=== PATIENT | female | born 1970 | race Caucasian/White ===

== ENCOUNTER 2017-05-03 20:10 | Emergency (ER) | payer BC, OTHER ==
[2017-05-03 20:19] VITALS: BP 150/80
[2017-05-03] MEDS ORDERED: methylPREDNISolone Sodium Succinate 125 MG/2 ML SDV IM ONE (20:21)
--- NOTE | 2017-05-03 20:27 | EDM.PDOC ---
ED HPI GENERAL MEDICAL PROBLEM - General Chief Complaint: Allergic Reaction Stated Complaint: rash Time Seen by Provider: 05/03/17 20:20 Source of Information: Reports: Patient History Limitations: Reports: No Limitations - History of Present Illness INITIAL COMMENTS - FREE TEXT/NARRATIVE: 48 hour history of worsening urticaria. Has had them at intervals before. No trigger ever found. No specific food/diet/exposure noted to trigger this particular episode. Patient is in process of moving. No wheezing or acute SOB at this time. No fevers. No sinus/ear congestion. No swelling of throat. No GI changes. No pain complaint. Has tried Benadryl, Zyrtec, and Zantac without much help. 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: Other (see below) Other Treatments IMPLEMENTATION PROJECT MANAGER: benadryl, ranitidine, zrytec - Related Data Allergies Allergy/AdvReac Type Severity Reaction Status Date / Time prochlorperazine Allergy Agitation Verified 05/03/17 20:11 [From Compazine] Sulfa (Sulfonamide Allergy Rash Verified 05/03/17 20:11 Antibiotics) Home Meds: Home Meds DULoxetine [Cymbalta] 90 mg PO DAILY 05/03/17 [History] Prednisone [IJD: predniSONE] 40 mg PO WITHBREAKFAST #5 tab 05/03/17 [Rx] Past Medical History Musculoskeletal History: Reports: Back Pain, Chronic Dermatologic History: Reports: Urticaria Social & Family History - Tobacco Use Smoking Status *Q: Light Tobacco Smoker - Alcohol Use Alcohol Use History: Yes ED ROS ALLERGIC REACTION - Review of Systems Review Of Systems: ROS reveals no pertinent complaints other than HPI. ED EXAM GENERAL NO PERIP PULSE - Physical Exam Exam: See Below Exam Limited By: No Limitations General Appearance: Alert, WD/WN, No Apparent Distress Eye Exam: Bilateral Eye: EOMI, PERRL Ears: Normal External Exam Nose: No: Nasal Swelling, Nasal Drainage, Clear Rhinorrhea Throat/Mouth: Normal Lips, Normal Voice, No Airway Compromise Head: Atraumatic, Normocephalic Neck: Supple Respiratory/Chest: No Respiratory Distress, Lungs Clear, Normal Breath Sounds, No Accessory Muscle Use Cardiovascular: Regular Rate, Rhythm, No Murmur GI/Abdominal: Soft Extremities: Normal Inspection, Normal Range of Motion, Normal Capillary Refill Neurological: Alert, Oriented, Normal Cognition, Normal Gait Psychiatric: Normal Affect, Normal Mood Skin Exam: Warm, Dry, Other (urticarial-type rash trunk and extremities) Course - Vital Signs Last Recorded V/S: Last Vital Signs Temp 37.1 C 05/03/17 20:12 Pulse 103 H 05/03/17 20:12 Resp 18 05/03/17 20:12 BP 150/80 H 05/03/17 20:12 Pulse Ox 100 05/03/17 20:12 - Orders/Labs/Meds Meds: Medications Discontinued Medications Generic Name Dose Route Start Last Admin Trade Name [place] PRN Reason Stop Dose Admin Methylprednisolone Sodium Succinate 125 mg 05/03/17 20:21 05/03/17 20:38 Solu-Medrol IM 05/03/17 20:22 125 mg ONETIME ONE Administration - Re-Assessments/Exams Free Text/Narrative Re-Assessment/Exam: 05/03/17 20:27 IM Solu-medrol given. Patient will continue regular Benadryl as well as Zyrtec and Zantac. To follow up right away if any respiratory involvement is noted or if symptoms worsen. Departure - Departure Time of Disposition: 20:41 Disposition: Home, Self-Care 01 Condition: Good Clinical Impression: Urticaria - Discharge Information Prescriptions: Prednisone [IJD: predniSONE] 40 mg PO WITHBREAKFAST #5 tab Additional Instructions: Start Prednisone tomorrow. Continue with Zyrtec, Zantac, and Benadryl. Follow up right away if you note worsening symptoms, especially any shortness of breath.
== END 2017-05-03 21:00 | disposition home or self-care (01) ==
LOC: LL.ED 20:10
DX: L50.9 Urticaria, unspecified (principal); F17.200 Nicotine dependence, unspecified, uncomplicated; Z88.2 Allergy status to sulfonamides; Z88.8 Allergy status to other drugs, medicaments and biological substances
CPT/HCPCS: 99282; J2930